=== PATIENT | female | born 1995 | race Caucasian/White ===

== ENCOUNTER 2020-02-05 20:17 | Emergency (ER) | payer SELFPAY ==
[2020-02-05 20:48] VITALS: BP 105/62
[2020-02-05 21:06] LABS: Influenza A Molecular Negative (Negative); Influenza B Molecular Negative (Negative)
[2020-02-05] MEDS ORDERED: Ondansetron ODT TAB* 4 MG PO ONE ×2 (21:10→21:53)
--- NOTE | 2020-02-05 21:13 | UC ---
FLU HPI - HPI Summary HPI Summary: 24-year-old woman comes in with a chief complaint of influenza-like illness started today. She has fevers chills headache body aches and nausea vomiting diarrhea. Minimal rhinorrhea no sore throat no ear pain. No shortness of breath. Did take some acetaminophen earlier on does not feel like it really helped. Has been exposed to people with influenza. - History of Current Complaint Chief Complaint: UCRespiratory Stated Complaint: BODY ACHES, FEVER, NAUSEA Time Seen by Provider: 02/05/20 20:54 Hx Last Menstrual Period: hx of irregular menses; unsure of lmp Pain Intensity: 8 - Allergy/Home Medications Allergies/Adverse Reactions: Allergies Allergy/AdvReac Type Severity Reaction Status Date / Time No Known Allergies Allergy Verified 02/05/20 20:43 Home Medications: Home Medications NK [No Home Medications Reported] 02/05/20 [History Confirmed 02/05/20] PMH/Surg Hx/FS Hx/Imm Hx Previously Healthy: Yes - Surgical History Surgical History: Yes Surgery Procedure, Year, and Place: D&C 2016 - Family History Known Family History: Positive: Non-Contributory - Social History Alcohol Use: Weekly Substance Use Type: None Smoking Status (MU): Never Smoked Tobacco Review of Systems All Other Systems Reviewed And Are Negative: Yes Constitutional: Positive: Fever, Chills, Other - see hpi Skin: Positive: Negative Eyes: Positive: Negative ENT: Positive: Other - see hpi Respiratory: Positive: Negative Cardiovascular: Positive: Negative Gastrointestinal: Positive: Vomiting, Diarrhea, Nausea Genitourinary: Positive: Negative Motor: Positive: Negative Neurovascular: Positive: Negative Musculoskeletal: Positive: Myalgia Neurological/Mental Status: Positive: Headache Psychological: Positive: Negative Is Patient Immunocompromised?: No Physical Exam Triage Information Reviewed: Yes Appearance: No Pain Distress, Well-Nourished, Ill-Appearing - mild Vital Signs: Initial Vital Signs Temp 99.6 F 02/05/20 20:43 Pulse 108 02/05/20 20:43 Resp 16 02/05/20 20:43 BP 105/62 02/05/20 20:43 Pulse Ox 98 02/05/20 20:43 Vital Signs Reviewed: Yes Eye Exam: Normal Eyes: Positive: Conjunctiva Clear ENT: Positive: Pharynx normal. Negative: Nasal drainage Neck: Positive: Supple Respiratory: Positive: Lungs clear, Normal breath sounds, No respiratory distress Cardiovascular: Positive: RRR Musculoskeletal: Positive: Strength Intact, ROM Intact Neurological: Positive: Alert, Muscle Tone Normal Psychological: Positive: Normal Response To Family, Age Appropriate Behavior Skin Exam: Normal Flu Course/Dx - Course Course Of Treatment: Influenza was negative. Zofran did improve the nausea and vomiting patient was able to take some by mouth fluids. Patient has generalized body aches to include neck and backache. At this time she does not clinically have meningitis. We discussed signs and symptoms of meningitis and that she needs to go the emergency department if she has any signs. - Differential Dx/Diagnosis Provider Diagnosis: Influenza-like illness, Nausea, vomiting, and diarrhea Discharge ED - Sign-Out/Discharge Documenting (check all that apply): Patient Departure All imaging exams completed and their final reports reviewed: No Studies - Discharge Plan Condition: Stable Disposition: HOME Patient Education Materials: Acute Nausea and Vomiting (ED), Acute Diarrhea (ED ), Viral Syndrome (ED) Forms: *Work Release Referrals: Gilbert Posada NP [Primary Care Provider] - Additional Instructions: FOLLOW UP WITH YOUR DOCTOR IF NOT COMPLETELY IMPROVED. GO TO THE EMERGENCY DEPARTMENT IF WORSE; DEHYDRATION, SIGNS OF MENINGITIS OR ANY QUESTIONS OR CONCERNS. - Billing Disposition and Condition Condition: STABLE Disposition: Home
[2020-02-05] MEDS ORDERED: Ibuprofen TAB* 600 MG PO ONE (21:54)
== END 2020-02-05 22:07 | disposition home or self-care (01) ==
LOC: UCCORT 20:17
DX: R11.2 Nausea with vomiting, unspecified (principal); R19.7 Diarrhea, unspecified; R51 Headache; R50.9 Fever, unspecified; J02.9 Acute pharyngitis, unspecified; R09.89 Other specified symptoms and signs involving the circulatory and respiratory systems
CPT/HCPCS: 99213; A9270-GY; G0463